=== PATIENT | female | born 1990 | race Caucasian/White ===

== ENCOUNTER 2021-05-23 17:00 | Outpatient (CLI) | payer OTHER ==
[2021-05-23 17:17] LABS: BASOPHILS % (AUTO) 0.3 %; EOSINOPHILS # (AUTO) 0.1 10^3/uL (0.0-0.7); EOSINOPHILS % (AUTO) 0.7 %; HCT - HEMATOCRIT 40.5 % (37.0-47.0); HGB - HEMOGLOBIN 13.8 g/dL (12.0-16.0); LYMPHOCYTES # (AUTO) 2.7 10^3/uL (1.5-3.5); LYMPHOCYTES % (AUTO) 20.4 %; MEAN CORPUSCULAR HEMOGLOBIN 30.3 pg (27.0-31.0); MEAN CORPUSCULAR HGB CONC 34.1 g/dL (32.0-36.0); MEAN PLATELET VOLUME 9.1 fL (7.9-10.8); MONOCYTES # (AUTO) 0.8 10^3/uL (0.0-1.0); MONOCYTES % (AUTO) 5.8 %; NEUTROPHILS # (AUTO) 9.4 10^3/uL (1.5-6.6); NEUTROPHILS % (AUTO) 72.1 %; PLT - PLATELET COUNT 304 10^3/uL (130-450); RED BLOOD COUNT 4.55 10^6/uL (4.20-5.40); RED CELL DISTRIBUTION WIDTH 12.8 % (12.0-15.0)
[2021-05-24 09:32] LABS: HEPATITIS B SURFACE ANTIGEN NON-REACTIVE (NON-REACTIVE)
[2021-05-24 11:22] LABS: HEPATITIS C ANTIBODY NON-REACTIVE (NON-REACTIVE)
[2021-05-24 14:26] LABS: HIV AG/AB 4TH GEN NON-REACTIVE (NON-REACTIVE)
== END 2021-05-23 17:01 | disposition home or self-care (01) ==
LOC: LAB 17:00
PROVIDERS: ATTEND Nurse Practitioner Obstetrics & Gynecology
DX: Z36.89 Encounter for other specified antenatal screening (principal)
CPT/HCPCS: 36415; 85025; 86592; 86762; 86787; 86803; 86850; 86900; 86901; 87340; 87389

== ENCOUNTER 2021-07-10 13:31 | Outpatient (CLI) | payer SELFPAY | END 2021-07-10 13:32 | disposition home or self-care (01) | LOC: LAB 13:31 | PROVIDERS: ATTEND Nurse Practitioner Obstetrics & Gynecology | DX: Z13.79 Encounter for other screening for genetic and chromosomal anomalies (principal) | CPT/HCPCS: 36415 ==

== ENCOUNTER 2021-08-10 10:29 | Outpatient (CLI) | payer OTHER ==
--- NOTE | 2021-08-10 16:00 | Ultrasound Report ---
PROCEDURE: OB Detailed Eval INDICATIONS: SUPERVISION OF OUTSIDE/PRIOR DATING DATA: Last menstrual period (LMP): 08/10/2021. LMP-based estimated date of delivery (NAREN): 12/27/2021. First dating scan (date and location): 05/23/2021. Estimated date of delivery (NAREN) from first dating scan: 12/23/2021. The below data below was generated using the ultrasound NAREN of 12/23/2021 TECHNIQUE: Real-time scanning was performed of the fetus, with image documentation and biometric measurements. COMPARISON: None. FINDINGS: General: A single living intrauterine gestation is present. Presentation: Transverse Placenta: Placental position is posterior, without previa. Amniotic fluid index: 13.3 cm, normal for gestational age. heart rate: 144 beats per minute. Maternal cervical canal: 5.1 cm long; normal length is 2.5 cm or more. biometrics: Biparietal diameter: 4.87 cm. 20 weeks 5 days. Head circumference: 18.85 cm. 21 weeks 1 day. Abdominal circumference: 17.11 cm. 22 weeks 1 day. Femur length: 3.45 cm. 20 weeks 6 days. Estimated gestational age from initial scan: 20 weeks 5 days Composite gestational age from present scan: 21 weeks 2 days Estimated weight and percentile: 425.6 g. 83.6 percentile. Measurement variability in biometric dating: +/- 10 days from 12-20 weeks gestation, +/- 2 weeks from 20-30 weeks gestation, +/- 3 weeks at 30 weeks gestation or later. Anatomic survey: Neuro: Ventricles are normal at less than 10 mm. Cisterna magna is normal at 3-11 mm. Cerebellum i s normal in size and morphology. Nuchal skin fold: Normal at less than 6 mm between 14 and 20 weeks gestational age. Face: Nose and lips, facial profile are normal. Spine: No evidence for spina bifida. Heart: 4-chambered heart is present, with normal ventricular outflow tracts. Diaphragm: Diaphragm is intact. Stomach: Left-sided stomach is present. Kidneys: No hydronephrosis. Normal is less than 5 mm in 2nd trimester, less than 7 mm in 3rd trimester. Cord: 3 vessel cord has orthotopic insertion. Bladder: Normal in size. Extremities: All 4 extremities are visualized. IMPRESSION: 1. All anatomy was visualized and is normal, however a better facial profile is needed and can be obt ained on the next exam. 2. Estimated weight 83.6 percentile. 3. Estimated gestational age from initial ultrasound 20 weeks 5 days. Reviewed by: Marlon Gudino on 08/10/2021 3:59 PM PDT Approved by: Marlon Gudino on 08/10/2021 3:59 PM PDT Station ID: [id number]
== END 2021-08-10 10:30 | disposition home or self-care (01) ==
LOC: DI 10:29
PROVIDERS: ATTEND Nurse Practitioner Obstetrics & Gynecology
DX: Z34.02 Encounter for supervision of normal first pregnancy, second trimester (principal); Z36.89 Encounter for other specified antenatal screening

== ENCOUNTER 2021-09-06 17:00 | Outpatient (CLI) | payer OTHER ==
--- NOTE | 2021-09-07 17:26 | Ultrasound Report ---
PROCEDURE: OB F/U or Repeat INDICATIONS: SUPERVISION OF OUTSIDE/PRIOR DATING DATA: Last menstrual period (LMP): To 1022. LMP-based estimated date of delivery (NAREN): 12/27/2021. First dating scan (date and location): 05/23/2021. Estimated date of delivery (NAREN) from first dating scan: 12/23/2021. The below data below was generated using the ultrasound NAREN of 12/23/2021 TECHNIQUE: Real-time scanning was performed of the fetus, with image documentation and biometric measurements. COMPARISON: OB ultrasound 08/10/2021 FINDINGS: General: A single living intrauterine gestation is present. Presentation: Vertex Placenta: Placental position is posterior, without previa. Amniotic fluid index: 12.2 cm, within normal limits for gestational age. Largest pocket 3.4 cm heart rate: 1:30 beats per minute. Maternal cervical canal: 3.6 cm long; normal length is 2.5 cm or more. biometrics: Estimated gestational age from initial scan: 24 weeks 4 days Other: profile is within normal limits. IMPRESSION: Single live intrauterine with ultrasound gestational age of 24 weeks 4 days. profile is within normal limits. Reviewed by: Yamini Carreon MD on 09/07/2021 5:25 PM PDT Approved by: Yamini Carreon MD on 09/07/2021 5:25 PM PDT Station ID: [id number]
== END 2021-09-06 17:01 | disposition home or self-care (01) ==
LOC: DI 17:00
PROVIDERS: ATTEND Nurse Practitioner Obstetrics & Gynecology
DX: Z34.82 Encounter for supervision of other normal pregnancy, second trimester (principal); Z36.89 Encounter for other specified antenatal screening

== ENCOUNTER 2021-12-30 23:36 | Inpatient (IN) | payer OTHER ==
[2021-12-31] MEDS ORDERED: METHYLERGONOVINE 0.2 MG/ML VIAL IM PRN (01:13)
[2021-12-31] MEDS ORDERED: SODIUM CHLORIDE FLUSH 0.9% 10 ML SYRINGE IVP PRN (01:13)
[2021-12-31] MEDS ORDERED: CARBOPROST TROMETHAMINE 250 MCG/ML AMP IM PRN (01:13)
[2021-12-31] MEDS ORDERED: OXYTOCIN/SODIUM CHLORIDE 500 ML IV PRN (01:13)
[2021-12-31] MEDS ORDERED: LABETALOL 20 MG/4 ML SYRINGE IVP PRN ×3 (01:13)
[2021-12-31] MEDS ORDERED: OXYTOCIN 10 UNIT/ML VIAL IM PRN (01:13)
[2021-12-31] MEDS ORDERED: lidocaine 1% 20 ML MDV ID PRN (01:13)
[2021-12-31] MEDS ORDERED: TERBUTALINE 1 MG/ML VIAL SUBQ PRN (01:13)
[2021-12-31] MEDS ORDERED: TRANEXAMIC ACID IN NACL 1,000 MG/100 ML BAG IV PRN (01:13)
[2021-12-31] MEDS ORDERED: miSOPROStoL 200 MCG TABLET PR PRN (01:13)
[2021-12-31] MEDS ORDERED: hydrALAZINE INJ 20 MG/ML VIAL IVP PRN ×2 (01:13)
[2021-12-31] MEDS ORDERED: NIFEdipine 10 MG CAPSULE PO PRN (01:13)
[2021-12-31] MEDS ORDERED: fentaNYL 100 MCG/2 ML VIAL IVP PRN (01:13)
--- NOTE | 2021-12-31 01:20 | HISTORY & PHYSICAL EXAMINATION ---
Admit History - Visit Reason Visit Reason: Contractions - : 1 Parity: 0 Premature: 0 Ectopic: 0 : 0 Care: positive: [facility] Risk/History: positive: None Complications This : positive: None Smoking Status: Never smoker - Mother's Labs Mother's Blood Type: positive: O Mother's RH: positive: Positive GBS: positive: Group B Step Negative Rubella Status: positive: Immune Meds/Allgy - Allergies Allergies/Adverse Reactions: Allergies Allergy/AdvReac Type Severity Reaction Status Date / Time No Known Drug Allergies Allergy Verified 12/31/21 01:28 Review of Systems - Constitutional Constitutional: denies: Fatigue, Fever, Chills, Malaise - Eyes Eyes: denies: Blurred vision, Spots in vision, Dipolpia - Cardiovascular Cariovascular: denies: Irregular heart rate, Palpitations, Chest pain, Edema - Respiratory Respiratory: denies: Cough, Wheezing, SOB at rest - Gastrointestinal Gastrointestinal: denies: Constipation, Diarrhea, Nausea, Vomiting - Genitourinary Genitourinary: denies: Dysuria - Integumentary Integumentary: denies: Rash, Pruritis - Neurological Neurological: denies: Headache - Psychiatric Psychiatric: denies: Depression, Anxiety Physical - Abdominal Exam Vital Signs: Temp Pulse Resp BP Pulse Ox O2 Flow Rate 36.8 C 81 18 132/73 H 12/31/21 00:08 12/31/21 00:08 12/31/21 00:08 12/31/21 00:08 Contraction Frequency (min/apart): 4-6 Contraction Intensity: positive: Moderate to strong Uterine Resting Tone: positive: Soft - Monitoring Heart Rate Baseline: 130 Strip Review: positive: Category I - Presentation Presentation: positive: Vertex - Vaginal Exam Membranes: positive: Membranes intact Dilation (in cm): 6 Effacement (%): 100 Station: positive: -2 Cervical Position: positive: Midposition - Speculum Exam Speculum Exam Performed: positive: No Plan for Labor - Plan For Labor I expect patient to be DC'd or transferred within 96 hours.: Yes Plan for Labor: HPI: This 31yo @ 40.4wks gestation by LMP c/w 9.3wk U/S presented on 12/31/2021 with c/o contractions that have been intermittent for the past sev eral days but at 2200 they increased in frequency, intensity and duration. She has experienced mucousy vaginal discharge that has been blood-tinged for the past 24 hours. She denies leakage of fluid and reports +FM. Her Bernabe is supportive at the bedside. SVE 6/100/-2, midposition and vertex with intact membranes. She has been a patient of [facility] for the duration of her pr egnancy which has remained uncomplicated. She will be admitted to [facility] for expectant management. 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 Last pap 2019. No hx of abnormals. Medical Hx: no significant Surgical Hx: none Family Hx: Heart disease- PGF; High blood pressure - Mother, MGF; Lung disease - MGF; Cancer - PGF; Depression - Mother, MGM, PGM Meds: PNV Allergies: None known Social: , lives with Jeff. 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 No tobacco, ETOH or recreational drug use. Caffeine intake minimal. course: Initial U/S @ 9.3wks c/w LMP dating O positive, antibody negative Rubella immune, varicella immune Genetic screening - invitae NIPS negative FAS WNL with the exception of poor visualization of facial profile. Posterior placenta, no previa. Size c/w dating. 3VC. Completion FAS WNL. Glucola 99 Tdap 10/23/2021 GBS negative COVID vaccine with booster x 2 (last boosted 05/09/2021) Physical Exam: Normocephalic, atraumatic Heart RRR w/o M/G/R Lungs CTAB Abdomen gravid, soft, nontender EFW 3400g FHR baseline 130, moderate variability, + accels, no decels Contractions palpate moderate to strong every 3-5 minutes with soft resting tone SVE 6/100/-2, midposition. Vertex. Intact membranes Bilateral LE's trace edema. Mood is good. Assessment: 31yo @ 40.4wks gestation by LMP c/w 9.3wk U/S Active labor GBS negative Plan: Admit for expectant management. Continuous monitoring. Jacuzzi PRN. Nitrous oxide PRN. Epidural per maternal request. Anticipate .
[2021-12-31] MEDS ORDERED: LACTATED RINGERS 1,000 ML ONE (01:22)
[2021-12-31] MEDS ORDERED: LACTATED RINGERS 1,000 ML IV SCH (02:00)
[2021-12-31] MEDS ORDERED: SODIUM CHLORIDE FLUSH 0.9% 10 ML SYRINGE IVP SCH (02:00)
[2021-12-31] MEDS ORDERED: WITCH HAZEL/GLYCERIN 1 PAD TOP PRN (07:46)
[2021-12-31] MEDS ORDERED: HYDROCORTISONE 1% CREAM 28 GM TUBE PR PRN (07:46)
--- NOTE | 2021-12-31 07:49 | DELIVERY NOTE ---
Delivery Note - Labor Labor: positive: Spontaneous - Delivery Method Delivery Method: positive: Spontaneous vaginal delivery - Presentation Presentation: positive: Vertex, QUENTIN - left occiput anterior - Nuchal Cord Nuchal Cord: positive: None - Amniotic Fluid Description Amniotic Fluid Description: positive: Clear - Episiotomy Type Episiotomy Type: positive: None - Laceration Laceration: positive: 1st degree, Perineal - Delivery Outcome Delivery Outcome: positive: Livebirth - [place]: positive: Placed in direct skin contact with mother, Stimulated, Warmed, [place] used sex: positive: Male - Cord Cord: positive: 3 vessels - Placenta Placenta: positive: Intact, Spontaneous - Estimated Blood Loss Estimated Blood Loss (in cc): 400 - Post Delivery Events Post Delivery Events: positive: No post delivery events - Delivery Comments (Free Text/Narrative) Delivery Comments (Free Text/Narrative): Labor: This 31yo @ 40.4wks gestation by LMP c/w 9.3wk U/S presented on 12/31/2021 at 0010 in active labor. Cervix was 6/100/-2 and vertex with intact membranes. FHR pattern demonstrated Category I pattern throughout labor. SROM occurred at 0542 and was noted to be a moderate amount of clear fluid. Pt progressed to c/c/0 with onset of spontaneous pushing at 0550. : Normal of viable male on 12/31/2021 at 0716. No nuchal cord. The was placed on maternal abdomen, stimulated, dried, and placed skin to skin. Apgars were 8/9 at 1 and 5 minutes respectively. Pitocin administered via IV for hemostasis. The umbilical cord was allowed to stop pulsating at which time it was doubly clamped by CNM and cut by FOB. 3VC. Cord blood was obtained. Fundal massage and gentle cord traction applied for active management of the third stage. Placenta delivered spontaneously and intact @ 0721. EBL 400mL. Fourth stage: Uterine fundus firm and there is no excessive bleeding. The perineum, vagina, and cervix were inspected and noted to have a minor 1st degree laceration which was hemostatic and left unrepaired. initiated. Family bonding well. Both mother and baby were left in stable condition.
[2021-12-31] MEDS: ACETAMINOPHEN 500 MG TABLET PO SCH ×2 (15:05→17:05)
[2021-12-31] MEDS: IBUPROFEN 800 MG TABLET PO SCH ×2 (15:05→17:04)
[2021-12-31] MEDS: DOCUSATE SODIUM 100 MG CAPSULE PO SCH ×2 (17:05→21:35)
[2022-01-01] MEDS: IBUPROFEN 800 MG TABLET PO SCH (07:58)
[2022-01-01] MEDS: ACETAMINOPHEN 500 MG TABLET PO SCH (07:58)
[2022-01-01] MEDS: DOCUSATE SODIUM 100 MG CAPSULE PO SCH (07:58)
--- NOTE | 2022-01-01 11:07 | Discharge Plan ---
Discharge Plan Problem Reviewed?: Yes Disposition: Home, Self Care Condition: Good Diet: Regular Activity Restrictions: No Restrictions Shower Restrictions: No Driving Restrictions: No Weight Bearing: Full Weight Instruction Topics: Vaginal After No Smoking: If you smoke, Please STOP! Call for help. Follow-up with: Bobbi Blackwell CNM, ARNP [Primary Care Provider] - 1 Week
--- NOTE | 2022-01-01 11:14 | DISCHARGE SUMMARY ---
Discharge Summary Condition at Discharge: Good Discharge Disposition: 01 Home, Self Care - HOSPITAL COURSE Hospital Course: Date of Admission: 12/31/2021 Date of Discharge: 01/01/2022 Diagnosis on Admission: 1. 31yo @ 40.4wks gestation by LMP c/w 9.3wk U/S 2. Active labor 3. GBS negative 4. FHR Category I Diagnosis on Discharge: 1. 31yo PPD#1 s/p TSVD viable male 2. . 3. Normal recovery Brief History: She is a patient of [facility] who presented on 12/31/2021 in active labor. Cervix was 6/100/-2 and vertex with intact membranes. FHR baseline Category I throughout labor. She progressed spontaneously to deliver a viable m bradley infant on 12/31/2021 at 0716. Apgars were 8/9 at 1 and 5 minutes respectively. EBL 400mL. 1st degree perineal laceration was hemostatic and left unrepaired. She has been doing well in her course. She is ambulating and tolerating a regular diet. She is urinating without difficulty and her lochia is normal. Her pain is well controlled with oral medications. She is bonding well with her baby and is with some difficulty secondary to flat nipples however has started to use the nipple shield which has been very helpful. She has an ample amount of colostrum. She will be discharged home today on day #1 with instructions to continue taking ibuprofen and tylenol over the counter as needed for pain management and to continue taking her vitamin while . She intends to follow up with myself at [facility] in 1 week for routine visit or sooner if needed. She has been given precautions to call if she has any worsening fevers, chills, abdominal pain, increased vaginal bleeding or foul smelling vaginal lochia. Physical Exam: Normocephalic, atraumatic, heart RRR w/o M/G/R, lungs CTAB, abdomen soft and nontender with fundus firm at U, perineum intact, light lochia rubra, bilateral LE's no edema. supportive at the bedside. Mood is good. - ALLERGIES Allergies/Adverse Reactions: Allergies Allergy/AdvReac Type Severity Reaction Status Date / Time No Known Drug Allergies Allergy Verified 12/31/21 01:28
[2022-01-01 16:06] VITALS: BP 121/65
--- NOTE | 2022-01-01 18:10 | Labor Flowsheet ---
Labor Flowsheet Datetime Report Generated by CPN: 01/01/2022 18:09 Datetime: 01/01/2022 16:00 VITAL SIGNS NBP Sys/Lia/Mean (mmHg): 121 : 65 : 77 Pulse: 69 LaborFlag: Labor Datetime: 12/31/2021 14:34 SpO2 (%): 98 Datetime: 12/31/2021 07:49 Membranes Ruptured Date/Time: 12/31/2021 05:42 Datetime: 12/31/2021 06:22 Pushing Progress: Descent with Pushing Datetime: 12/31/2021 05:50 FHR Baseline Rate : 130 Variability: Moderate 6-25 bpm Accelerations: None Decelerations: None Category: Category I STAGE 2 Pushing Position: Pushing with Contractions Stage 2 Comments: start of pushing Datetime: 12/31/2021 05:45 ASSESSMENT A Monitor Mode: Telemetry VAGINAL EXAM Dilatation (cm): 10.0 Exam by: Rosalva, A. Datetime: 12/31/2021 05:42 Membrane Status: Ruptured Membranes Rupture Method: Spontaneous Amniotic Fluid Color: Clear Amniotic Fluid Amount: Moderate Amniotic Fluid Odor: Normal Pool: Positive Datetime: 12/31/2021 05:30 UTERINE ACTIVITY Monitor Mode: External Frequency (min): 2-4 Quality: Strong Duration (sec): 40-70 Pattern: Normal: <= 5 Contractions in 10 Minutes Resting Tone (Palpate): Relaxed Datetime: 12/31/2021 04:00 Contraction Comments: Pt. smiling and talking between contractions Datetime: 12/31/2021 03:35 Effacement (%): 100 Station: 0 Datetime: 12/31/2021 03:30 COMMUNICATION Communication: Provider at Bedside Communication Comments: provider reviewing strip and talking w/ pt. Datetime: 12/31/2021 03:29 Patient Care Comments: Pt. in jacuzzi Datetime: 12/31/2021 03:16 Comments: Monitor chasing mom's HR; in room w/ pt. adjusting, Datetime: 12/31/2021 01:41 PATIENT CARE IV/Blood Work: IV Saline Locked Datetime: 12/31/2021 01:30 Monitor Interventions for UA: [place] Adjusted Datetime: 12/31/2021 01:16 Provider Notified (Name): A. Rosalva
--- NOTE | 2022-01-06 09:44 | PROVIDER PROGRESS NOTE ---
Subjective - Subjective Subjective: NST reactive. FHR basline 130s, moderate variability, + accels, no decels Contractions palpate moderate to strong every 3-5 minutes with soft resting tone
== END 2022-01-01 17:30 | disposition home or self-care (01) | DRG 807 ==
LOC: WFO 23:36 → FBP 12-31 00:03 → WFO 12-31 00:44 → FBP 12-31 00:45
PROVIDERS: ADMIT Nurse Practitioner Obstetrics & Gynecology; ATTEND Nurse Practitioner Obstetrics & Gynecology
PROC: 10E0XZZ Delivery of Products of Conception, External Approach (ICD-10-PCS; principal; 2021-12-31)
PROC: 4A0HXCZ Measurement of Products of Conception, Cardiac Rate, External Approach (ICD-10-PCS; 2021-12-31)
DX: O70.0 First degree perineal laceration during delivery (principal); Z37.0 Single live birth; O48.0 Post-term pregnancy; Z3A.40 40 weeks gestation of pregnancy
CPT/HCPCS: 36415; 59025; 99215; A9270; J7120